=== PATIENT | male | born 1970 | race Caucasian/White ===

== ENCOUNTER 2016-08-13 22:30 | Emergency (ER) | payer MEDICAID, OTHER ==
[~2016-08-13] VITALS: Ht 170.2 cm; Wt 86.2 kg
[2016-08-13 22:54] VITALS: BP 164/93
== END 2016-08-14 01:03 | disposition left against medical advice (07) ==
LOC: EDBD 22:30 → ER 22:30
DX: R10.31 Right lower quadrant pain (principal); Z87.442 Personal history of urinary calculi; Z53.21 Procedure and treatment not carried out due to patient leaving prior to being seen by health care provider